=== PATIENT | male | born 1955 | race Caucasian/White ===

== ENCOUNTER 2025-01-04 12:16 | Inpatient (IN) ==
--- NOTE | 2025-01-04 12:50 | Emergency Department Note ---
Impression & Plan Hematuria, gross, Clot retention of urine, Acute blood loss anemia, BPH with urinary obstruction ED Provider Note NAME: ROS HOLDEN AGE: 69 SEX: M : 1955 ARRIVES VIA: Walk-In INFORMANT: Patient ED PROVIDER(S): Jared Hollins MD CHIEF COMPLAINT: Gross hematuria, obstructed Arita catheter, referred PLAN: Disposition: Admit MEDICAL DECISION MAKING: The patient is a pleasant 69-year-old gentleman with a past medical history of BPH with LUTS who presents to the emergency department referred by his urology office for further evaluation and management of persistent gross hematuria and recurring obstruction of his Arita catheter in the setting of having a TURP performed on 12/22. The patient was seen in the emergency department early this morning for obstructed Arita catheter and had followed up with urology this afternoon and had continued obstruction of his Arita catheter despite manual evacuation of clots and irrigation. Patient's Arita catheter was also upsized in the urology office but recurring obstruction of his catheter persisted. Patient is not on anticoagulation. He does take a low-dose aspirin daily. On evaluation patient no distress, afebrile with [place] 90s and blood pressure 150s/80s and otherwise stable vital signs. He appears clinically dry. Abdomen is nontender. Arita catheter is present with gross hematuria. Case was discussed with Vesat Castaneda urology DAI with Dr. Bennett, urology who were aware of the patient for the emergency department. Appreciate consultation recommendations. Blood work was obtained and saline lock was placed. WBC within normal limits with neutrophilia but no left shift, nonspecific. H/H 10.4/30.4 decreased from 14.5/41.5 several weeks ago without recent for comparison. Platelets within normal limits. Chemistry without metabolic acidosis. Electrolytes and LFTs unremarkable. Patient was assessed by urology at the bedside where manual evacuation irrigation of his Arita catheter was successful. However given recurring episodes of obstruction of the catheter recommend admission to hospital service for further monitoring in the event that OR clot evacuation would be needed. Agrees with empiric antibiotics while awaiting urine culture from early this morning. IV cefepime administered empirically per prior urine culture which grew Acinetobacter. Case was discussed with Marla LALA with Dr. Gan with [facility] hospitalist, who will evaluate the patient for admission. Triage Nursing notes reviewed and agree them. Prior/external medical records reviewed Vital Signs: reviewed Differential diagnosis: Renal colic, UTI, appendicitis, diverticulitis, mesenteric ischemia, aortic pathology, infections, inflammatory bowel disease, PUD, biliary pathology, as well as other pathologies. ER treatment provided: See below. Diagnostics interpreted by me: Cardiac Monitoring: An order for continuous cardiac monitoring was placed and demonstrated Laboratory studies: See below Imaging studies: See below Consultation(s): Marla LALA with Dr. Gan with [facility] hospitalist Vesta Castaneda, urology PRE BILLING SPECIALIST with Dr. Bennett, urology HPI: Per MDM. ROS: See above HPI for pertinent positives & negatives. A total of 10 systems reviewed and were otherwise negative. VITALS:See Below PHYSICAL EXAMINATION: GENERAL: Awake, alert, in no distress HENT: Normocephalic, atraumatic. Oropharynx with dry mucous membranes and otherwise unremarkable. EYES: Normal conjunctiva. Sclera non-icteric. NECK: Supple. No nuchal rigidity. FROM. No JVD. RESPIRATORY: Clear to auscultation. CARDIAC: Regular rate, normal rhythm. Extremities warm and well perfused. Pulses equal. ABDOMEN: Soft, non-distended. No tenderness to palpation. No rebound or guarding. : Arita catheter is present with gross hematuria. MUSCULOSKELETAL: Chest examination reveals no tenderness. The back is symmetrical on inspection without obvious abnormality. There is no CVA tenderness to palpation. No joint edema. LOWER EXTREMITIES: Calves are equal size bilaterally and non-tender. No edema. No discoloration. NEURO: Normal sensorium. No sensory or motor deficits noted. SKIN: No rash or jaundice noted. Jared Hollins MD Past Med/Surg History Problem List (Updated 01/04/25 @ 20:07 by Jared Hollins MD) Abnormal urinalysis Acute blood loss anemia (Acute) Hematuria (Acute) Acute urinary retention (Acute) Clot retention of urine (Acute) Hematuria, gross (Acute) Encounter for pre-operative examination BPH with urinary obstruction (Acute) Medical History Aortic stenosis Mild per 06/25/22 ECHO Hx of psoriasis Hx of sleep apnea CPAP Diabetes mellitus, type 2 NIDDM BPH with urinary obstruction Hx of hyperlipidemia History of hypertension Surgical History S/P TURP Hx of repair of right rotator cuff Hx of colonoscopy sometime prior to 2019 H/O wisdom tooth extraction Social History Smoking Status: Former smoker Tobacco Type: Cigarettes, Pipe and Cigars Second Hand Exposure: Yes (hx in the [place]); Do You Dip or Chew Tobacco: No; Hx Alcohol Use: Yes Alcohol type: beer Hx Substance Use: No Preferred Language: Belarusian Communication Ability: Effective Visual Impairment: No Limitations Flight Operations Dispatch Clerk Required: No Beliefs That Will Affect Care: None Current Living Situation: Spouse Other Information That Helps Us Care for You: No Feels Safe at Home: Yes Safety Concerns: Feels Safe At This Time Assistive Devices: Glasses Allergies Allergies Allergy/AdvReac Type Severity Reaction Status Date / Time No Known Allergies Allergy Verified 01/04/25 01:45 Home Meds Home Medications Medication Instructions Recorded Confirmed adalimumab 40 mg/0.8 mL 40 mg subcut WK 10/28/24 01/04/25 subcutaneous pen kit (Humira Pen) amlodipine 5 mg tablet 5 mg PO QAM 10/28/24 01/04/25 atorvastatin 40 mg tablet 40 mg PO QAM 10/28/24 01/04/25 losartan 100 mg tablet 100 mg PO QAM 10/28/24 01/04/25 metformin 1,000 mg tablet 1,000 mg PO BID 10/28/24 01/04/25 semaglutide 2 mg/dose (8 mg/3 mL) 2 mg subcut WK 10/28/24 01/04/25 subcutaneous pen injector (Ozempic) sildenafil 25 mg tablet 25 mg PO UD PRN Erectile 10/28/24 01/04/25 Dysfunction tamsulosin 0.4 mg capsule 0.4 mg PO QAM 10/28/24 01/04/25 finasteride 5 mg tablet 5 mg PO QAM 12/13/24 01/04/25 multivit with minerals-folic 1 tab PO QAM 12/13/24 01/04/25 acid-lycopene 0.4 mg-600 mcg tablet (One Daily For Men) aspirin 81 mg tablet,delayed 81 mg PO DAILY 01/04/25 01/04/25 release Results & Data (ED) Vital Signs Vital Signs - 24 hr 01/04/25 12:17 01/04/25 13:00 Temperature 36.7 C Temperature Source Temporal Artery Scan Pulse Rate 94 H 78 Pulse Rhythm Regular Pulse Strength Normal Respiratory Rate 20 16 Respiratory Effort / Characteristics Non-Labored Spontaneous Respiratory Depth Normal Blood Pressure 154/81 H Blood Pressure Mean 105 Blood Pressure Position Sitting Pulse Oximetry 96 94 Oxygen Delivery Method Room Air Room Air Sepsis Recent Fever Within 48 Hours No Sepsis New/Unexplained Change in Mental Status N/A Sepsis Action Taken by Nursing No Action Required Laboratory Data Attestation: I reviewed the patient's lab results. 01/04/25 12:55 01/04/25 12:55 Lab Results 01/04/25 Range/Units 12:55 WBC 10.37 (4.8-10.8) K/ul RBC 3.45 L (4.70-6.10) M/uL Hgb 10.4 L (14.0-18.0) g/dl Hct 30.4 L (42.0-52.0) % MCV 88.1 (80.0-100.0) fL MCH 30.1 (25.0-34.0) pg MCHC 34.2 (32.0-36.0) g/dL RDW Std Deviation 42.2 (36.4-46.3) fL RDW Coeff of Lilia 13.2 (11.5-14.5) % Plt Count 315 (130-400) K/uL MPV 9.7 (9.4-12.4) fL Immature Gran % (Auto) 0.3 % Neut % (Auto) 72.2 % Lymph % (Auto) 19.4 % Boundary % (Auto) 6.0 % Eos % (Auto) 1.3 % Baso % (Auto) 0.8 % Neut # (Auto) 7.50 H (1.40-6.50) K/uL Lymph # (Auto) 2.01 (1.20-3.40) K/uL Boundary # (Auto) 0.62 H (0.11-0.59) K/uL Eos # (Auto) 0.13 (0.00-0.50) K/uL Baso # (Auto) 0.08 (0.00-0.20) K/uL Immature Gran # (Auto) 0.03 (0.01-0.20) K/uL PT 10.3 (9.0-12.0) Seconds INR 0.9 (0.9-1.1) Sodium 140 (136-145) mmol/L Potassium 3.6 (3.5-5.1) mmol/L Chloride 107 (98-107) mmol/L Carbon Dioxide 24 (21-32) mmol/L Anion Gap 9 (3-11) BUN 9 (6-23) mg/dl Creatinine 0.75 (0.6-1.4) mg/dl Est Cr Clr Drug Dosing 102.4 ml/min eGFR 98.91 BUN/Creatinine Ratio 12.0 (10-20) Glucose 77 (70-99(Fasting)) mg/dl Calcium 9.2 (8.6-10.3) mg/dl Total Bilirubin 0.5 (0.2-1.0) mg/dl AST 12 L (13-39) U/L ALT 17 (7-52) U/L Alkaline Phosphatase 95 (34-104) U/L Total Protein 7.2 (6.0-8.3) gm/dl Albumin 4.0 (3.4-5.0) gm/dl Globulin 3.2 (2.5-4.0) gm/dl Albumin/Globulin Ratio 1.3 (0.9-2) Administered Medications Insulin Aspart (Insulin Aspart Per Unit Charge) 0 units SC ACHS SHAYAN Stop: 02/03/25 16:29 Last Admin: 01/04/25 17:43 Dose: 2 units Documented By: NALLELY Co-signed By: KD Discontinued Medications Cefepime HCl (Maxipime 2000mg) 2,000 mg in 20 mls @ 5 mls/min IV NOW STA; Protocol Stop: 01/04/25 14:56 Last Admin: 01/04/25 14:59 Dose: 5 mls/min Documented By: Sodium Chloride (Nss) 1,000 mls @ 125 mls/hr IV .Q8H SHAYAN Stop: 01/07/25 14:59 Last Infusion: 01/04/25 17:26 Dose: Infused Documented By: Admin: 01/04/25 14:59 Dose: 125 mls/hr Documented By: Discharge Plan Visit Data Chief Complaint: Referred by Doctor Stated Complaint: MEET WITH DOC ED Provider: Jared Hollins Discharge Problem: Hematuria, gross, Clot retention of urine, Acute blood loss anemia, BPH with urinary obstruction Patient Disposition: Admitted As Inpatient Condition: Fair Discharge Instructions Interventions: ED Discharge Assessment Last Done: 01/04/25 15:42
[2025-01-04 14:11] LABS: Hematocrit (blood only) 30.4 % (42.0-52.0); Hemoglobin 10.4 g/dl (14.0-18.0); Immature Granulocytes # (auto) 0.03 K/uL (0.01-0.20); Immature Granulocytes % (auto) 0.3 %; Mean Corpuscular Hemoglobin 30.1 pg (25.0-34.0); Mean Corpuscular Volume 88.1 fL (80.0-100.0); Platelet Count 315 K/uL (130-400); RDW Standard Deviation 42.2 fL (36.4-46.3); Red Blood Count 3.45 M/uL (4.70-6.10); White Blood Count 10.37 K/ul (4.8-10.8)
[2025-01-04 14:22] LABS: Alanine Aminotransferase 17.0 U/L (7-52); Albumin Globulin Ratio 1.3 (0.9-2); Alkaline Phosphatase 95.0 U/L (34-104); Anion Gap 9.0 (3-11); Bilirubin,Total 0.5 mg/dl (0.2-1.0); Blood Urea Nitrogen 9.0 mg/dl (6-23); Calcium 9.2 mg/dl (8.6-10.3); Carbon Dioxide 24.0 mmol/L (21-32); Chloride 107.0 mmol/L (98-107); Creatinine Clr Calc Pharmacy 102.4 ml/min; Globulin 3.2 gm/dl (2.5-4.0); Glucose 77.0 mg/dl (70-99(Fasting)); Potassium 3.6 mmol/L (3.5-5.1); Sodium 140.0 mmol/L (136-145); Total Protein 7.2 gm/dl (6.0-8.3)
[2025-01-04 14:23] LABS: INR 0.9 (0.9-1.1); Prothrombin Time 10.3 Seconds (9.0-12.0)
--- NOTE | 2025-01-04 14:57 | Urology Consultation ---
Date of Consultation January 04, 2025 Assessment & Plan (1) Hematuria: (2) Acute urinary retention: Plan 69-year-old male who is status post TURP for urinary retention on 12/22/2024. He was discharged on the same day but unfortunately developed clot retention and had to be irrigated in clinic that same day. He is then passed to void trials but unfortunately gone back into retention and had a catheter placed in the ED. He presented to our outpatient office with clot retention today. He was recommended to go over to the emergency department. I immediately aspirated roughly 200 cc of old blood clot. I then irrigated the bladder with 500 cc of sterile water and urine was thin red at the conclusion. Given his prolonged postoperative course and multiple needs for replacement of catheter, I think it is reasonable to observe him overnight and make him n.p.o. at midnight in the event that his urine does not further clear tomorrow. I would then take him to the OR for cystoscopy, clot evacuation and fulguration. I am hopeful that he was initially voiding after his void trials, but sounds like he developed clot retention. I do think he will ultimately void once we can address his hematuria and give him time to recover Nursing can hand irrigate catheter as needed N.p.o. at midnight Urology will reevaluate in the morning and determine if he can be observed or needs to be taken to the OR. History of Present Illness History of Present Illness 69-year-old male who is status post TURP for urinary retention on 12/22/2024. He was discharged on the same day but unfortunately developed clot retention and had to be irrigated in clinic that same day. He is then passed to void trials but unfortunately gone back into retention and had a catheter placed in the ED. He presented to our outpatient office with clot retention today. He was recommended to go over to the emergency department. Afebrile with stable vitals. Labs show a hemoglobin of 10.4, creatinine of 0.5 and a urinalysis that was grossly positive which is expected. Allergies Allergy/AdvReac Type Severity Reaction Status Date / Time No Known Allergies Allergy Verified 01/04/25 01:45 Home Medications Medication Instructions Recorded Confirmed Type adalimumab 40 mg/0.8 mL 40 mg subcut WK 10/28/24 01/04/25 History subcutaneous pen kit (Humira Pen) amlodipine 5 mg tablet 5 mg PO QAM 10/28/24 01/04/25 History atorvastatin 40 mg tablet 40 mg PO QAM 10/28/24 01/04/25 History losartan 100 mg tablet 100 mg PO QAM 10/28/24 01/04/25 History metformin 1,000 mg tablet 1,000 mg PO BID 10/28/24 01/04/25 History semaglutide 2 mg/dose (8 mg/3 mL) 2 mg subcut WK 10/28/24 01/04/25 History subcutaneous pen injector (Ozempic) sildenafil 25 mg tablet 25 mg PO UD PRN Erectile 10/28/24 01/04/25 History Dysfunction tamsulosin 0.4 mg capsule 0.4 mg PO QAM 10/28/24 01/04/25 History finasteride 5 mg tablet 5 mg PO QAM 12/13/24 01/04/25 History multivit with minerals-folic 1 tab PO QAM 12/13/24 01/04/25 History acid-lycopene 0.4 mg-600 mcg tablet (One Daily For Men) sulfamethoxazole 800 1 tab PO BID 7 days #14 tabs 01/04/25 01/04/25 Rx mg-trimethoprim 160 mg tablet (Bactrim DS) Patient History Medical History Aortic stenosis Mild per 06/25/22 ECHO Hx of psoriasis Hx of sleep apnea CPAP Diabetes mellitus, type 2 NIDDM BPH with urinary obstruction Hx of hyperlipidemia History of hypertension Surgical History Hx of repair of right rotator cuff Hx of colonoscopy sometime prior to 2019 H/O wisdom tooth extraction Social History Smoking Status: Former smoker Tobacco Type: Cigarettes Second Hand Exposure: Yes (hx in the [place]); Do You Dip or Chew Tobacco: No; Hx Alcohol Use: Yes Alcohol type: beer Hx Substance Use: No Preferred Language: Sinhala Communication Ability: Effective Visual Impairment: No Limitations Legal Investigator Required: No Beliefs That Will Affect Care: None Current Living Situation: Spouse Feels Safe at Home: Yes Assistive Devices: CPAP and Glasses Physical Exam Physical Exam: General: Alert and oriented, no acute distress HEENT: Normocephalic, mucous membranes moist Pulmonary: Nonlabored respirations Abdomen: Nondistended : 18 German catheter with maroon blood in bag Extremities: Moves all 4 spontaneously Neuro: No gross deficits Skin: Warm, dry, no rashes noted Results & Data Vital Signs (Past 12 Hours) Vital Signs Temp Pulse Resp BP Pulse Ox O2 Del Method 01/04/25 13:00 78 16 94 Room Air 01/04/25 12:17 36.7 C 94 H 20 154/81 H 96 Room Air PG Care Time/CCT Total # of Minutes Spent Total Time Spent with Patient: Total time spent is greater than 50% in coordination of care (as documented) at patient's floor/unit and/or counseling patient: Coding Level of Care Code 66342 INT INP/OBS CARE 2/55MIN Diagnoses Hematuria R31.9 Acute urinary retention R33.8
[2025-01-04] MEDS: SODIUM CHLORIDE 0.9% 1,000 ML IV SCH (14:59)
[2025-01-04] MEDS: CEFEPIME 2000MG 2,000 MG/20 ML SYR IV STA (14:59)
--- NOTE | 2025-01-04 16:03 | History & Physical Report ---
Date of Service January 04, 2025 Assessment & Plan (1) Hematuria: (2) Clot retention of urine: (3) S/P TURP: (4) Abnormal urinalysis: (5) BPH with urinary obstruction: Plan: Admit to med/surg Patient presenting by referral of urology office for hematuria. S/p TURP on 12/22. Patient was discharged with Arita catheter in place and required evaluation the same day in the urology office for hematuria and clotted catheter. Patient was seen in the office yesterday and passed a voiding trial and catheter was removed. By 9 PM, patient reports he was urinating blood clots again. Patient was evaluated in the emergency room overnight and had catheter placed again. Patient was then seen in the urology office this afternoon and was noted to have ongoing hematuria and clots and was referred to the ED for further evaluation. Evaluated by urology in the ED - manually irrigated multiple times due to clots, will start CBI NPO after midnight for possible cysto Hold ASA UA suggestive of possible UTI, s/p cefepime in the ED, will continue with based upon prior culture results (Acinetobacter). Does not appear septic. 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 Gan. I spent a total of 75 minutes coordinating, documenting, and providing care for this patient excluding time spent in the performance of separately billed services. This included personally reviewing all current laboratories and imaging studies, medication reconciliation, outpatient chart review, and discussion with specialists. History of Present Illness Chief Complaint: Hematuria Primary Care Provider: Bala Daniel DO 69 year old male with PMH HTN, HLD, DM type II, BPH, psoriasis on Humira, and other problems listed below who presents to the ED for evaluation of hematuria. Patient is s/p TURP on 6/18. Patient was discharged with Arita catheter in place and required evaluation the same day in the urology office for hematuria and clotted catheter. Patient was seen in the office yesterday and passed a voiding trial and catheter was removed. By 9 PM, patient reports he was urinating blood clots again. Patient was evaluated in the emergency room overnight and had catheter placed again. Patient was then seen in the urology office this afternoon and was noted to have ongoing hematuria and clots and was referred to the ED for further evaluation. Patient reports feeling generally unwell. He has had a poor appetite but denies nausea or vomiting. No fever or chills. Reports suprapubic discomfort when unable to urinate. Denies chest pain, shortness of breath, lightheadedness, dizziness, diaphoresis, syncopal events. In the ED, patient was evaluated by urology and catheter was irrigated. Urology recommending admission for observation and possible OR tomorrow. Labs show hgb 10.4, VSS. UA obtained during overnight ED visits suggesting possible infection, patient was given IV Cefepime. Allergies Allergy/AdvReac Type Severity Reaction Status Date / Time No Known Allergies Allergy Verified 01/04/25 01:45 Home Medications Medication Instructions Recorded Confirmed Type adalimumab 40 mg/0.8 mL 40 mg subcut WK 10/28/24 01/04/25 History subcutaneous pen kit (Humira Pen) amlodipine 5 mg tablet 5 mg PO QAM 10/28/24 01/04/25 History atorvastatin 40 mg tablet 40 mg PO QAM 10/28/24 01/04/25 History losartan 100 mg tablet 100 mg PO QAM 10/28/24 01/04/25 History metformin 1,000 mg tablet 1,000 mg PO BID 10/28/24 01/04/25 History semaglutide 2 mg/dose (8 mg/3 mL) 2 mg subcut WK 10/28/24 01/04/25 History subcutaneous pen injector (Ozempic) sildenafil 25 mg tablet 25 mg PO UD PRN Erectile 10/28/24 01/04/25 History Dysfunction tamsulosin 0.4 mg capsule 0.4 mg PO QAM 10/28/24 01/04/25 History finasteride 5 mg tablet 5 mg PO QAM 12/13/24 01/04/25 History multivit with minerals-folic 1 tab PO QAM 12/13/24 01/04/25 History acid-lycopene 0.4 mg-600 mcg tablet (One Daily For Men) aspirin 81 mg tablet,delayed 81 mg PO DAILY 01/04/25 01/04/25 History release Past Med/Surg History Problem List (Updated 01/04/25 @ 17:09 by DAI Weiss) Abnormal urinalysis Acute blood loss anemia Hematuria (Acute) Acute urinary retention (Acute) Clot retention of urine (Acute) Hematuria, gross Encounter for pre-operative examination BPH with urinary obstruction (Acute) Medical History (Updated 01/04/25 @ 17:09 by DAI Weiss) Aortic stenosis Mild per 06/25/22 ECHO Hx of psoriasis Hx of sleep apnea CPAP Diabetes mellitus, type 2 NIDDM BPH with urinary obstruction Hx of hyperlipidemia History of hypertension Surgical History (Updated 01/04/25 @ 17:07 by DAI Weiss) S/P TURP Hx of repair of right rotator cuff Hx of colonoscopy sometime prior to 2019 H/O wisdom tooth extraction Social History Smoking Status: Former smoker Tobacco Type: Cigarettes Second Hand Exposure: Yes (hx in the [place]); Do You Dip or Chew Tobacco: No; Hx Alcohol Use: Yes Alcohol type: beer Hx Substance Use: No Preferred Language: Icelandic Communication Ability: Effective Visual Impairment: No Limitations Mechanical Engineering Officer Required: No Beliefs That Will Affect Care: None Current Living Situation: Spouse Feels Safe at Home: Yes Assistive Devices: CPAP and Glasses Review of Systems Review of Systems: ROS per HPI, all other systems reviewed and negative Physical Exam Constitutional: WD/WN, vitals as above no acute distress Respiratory: normal respiratory effort, lungs clear to auscultation Cardiovascular: Rate/Rhythm: regular rate and regular rhythm Vessels: normal peripheral pulses Extremities: no edema Skin: no rashes, warm and dry Neurologic: no focal motor deficits Psychiatric: A+Ox3, euthymic affect Genitourinary: Arita in place draining mcguire colored urine Results & Data Results & Data Vital Signs (Past 12 Hours) Vital Signs Temp Pulse Pulse Resp BP BP Pulse Ox 01/04/25 15:42 01/04/25 15:34 82 20 146/86 H 96 01/04/25 13:00 78 16 94 01/04/25 12:17 36.7 C 94 H 20 154/81 H 96 O2 Del Method 01/04/25 15:42 Room Air 01/04/25 15:34 Room Air 01/04/25 13:00 Room Air 01/04/25 12:17 Room Air Laboratory Results Short CBC 01/04/25 Range/Units 12:55 WBC 10.37 (4.8-10.8) K/ul Hgb 10.4 L (14.0-18.0) g/dl Hct 30.4 L (42.0-52.0) % Plt Count 315 (130-400) K/uL BMP 01/04/25 12:55 Sodium 140 Potassium 3.6 Chloride 107 Carbon Dioxide 24 BUN 9 Creatinine 0.75 Glucose 77 Calcium 9.2 Liver Function 01/04/25 Range/Units 12:55 Total Bilirubin 0.5 (0.2-1.0) mg/dl AST 12 L (13-39) U/L ALT 17 (7-52) U/L Alkaline Phosphatase 95 (34-104) U/L Albumin 4.0 (3.4-5.0) gm/dl Supervising Physician Co-Signing Physician Notes Attending addendum: The patient was seen and examined in the emergency room He is status post TURP on and having recurrent hematuria and retention of urine He has some hypogastric pain but denies any renal angles pain or any fever and/or chills Was seen by the urologist and the catheter has been placed with still ongoing hematuria On examination Lying in bed and looks very depressed secondary to recurrent hematuria Hemodynamically stable Chest was clear to auscultate bilateral HeartS1-S2, regular Abdomenbenign, hypogastric tenderness, renal angles are not tender CNSalert, awake and oriented x 3 no focal sensory no motor deficit appreciated His admission labs and imaging studies reviewed # Recurrent hematuria and urinary retention with a status post TURP on 12/22 Appreciate urology input and recommendation and the patient will be kept n.p.o. after midnight for possible procedure if hematuria does not get any better His hemoglobin and labs remain unremarkable and will monitor Agree with assessment and plan as outlined above by Marla LALA and take the full responsibility of care in the hospital Dr Roberto Gan
[2025-01-04] MEDS ORDERED: GLUCOSE 10 TAB/TUBE PO PRN (16:24)
[2025-01-04] MEDS ORDERED: ACETAMINOPHEN 325 MG TAB PO PRN (16:24)
[2025-01-04] MEDS ORDERED: DEXTROSE 50% 50 ML SYRINGE IV PRN (16:24)
[2025-01-04] MEDS ORDERED: GLUCOSE 40% GEL 15 GM TUBE PO PRN (16:24)
[2025-01-04] MEDS ORDERED: GLUCAGON FOR INJ 1 MG VIAL SQ PRN (16:24)
[2025-01-04] MEDS ORDERED: CARBOHYDRATES FOR HYPOGLYCEMIA PO PRN (16:24)
[2025-01-04] MEDS: INSULIN ASPART PER UNIT CHARGE SC SCH (17:43)
[2025-01-04] MEDS: CEFEPIME 2000MG 2,000 MG/20 ML SYR IV SCH (20:01)
[2025-01-05] MEDS ORDERED: Nursing to Pharmacy Communication SCH ×2 (06:00→11:00)
[2025-01-05] MEDS: INSULIN ASPART PER UNIT CHARGE SC SCH ×2 (06:21→12:06)
[2025-01-05 06:24] LABS: Hematocrit (blood only) 29.8 % (42.0-52.0); Hemoglobin 10.2 g/dl (14.0-18.0); Mean Corpuscular Hemoglobin 30.4 pg (25.0-34.0); Mean Corpuscular Volume 88.7 fL (80.0-100.0); Platelet Count 278 K/uL (130-400); RDW Standard Deviation 41.1 fL (36.4-46.3); Red Blood Count 3.36 M/uL (4.70-6.10); White Blood Count 9.03 K/ul (4.8-10.8)
[2025-01-05 08:14] LABS: Hemoglobin A1C 4.9 % (4.5-5.6)
[2025-01-05 08:17] LABS: Anion Gap 8.0 (3-11); Calcium 9.1 mg/dl (8.6-10.3); Carbon Dioxide 25.0 mmol/L (21-32); Chloride 107.0 mmol/L (98-107); Potassium 4.0 mmol/L (3.5-5.1); Sodium 140.0 mmol/L (136-145)
[2025-01-05 08:22] LABS: Blood Urea Nitrogen 13.0 mg/dl (6-23); Creatinine Clr Calc Pharmacy 80.0 ml/min; Glucose 81.0 mg/dl (70-99(Fasting))
[2025-01-05] MEDS: TAMSULOSIN HCL 0.4 MG CAP PO SCH (09:18)
[2025-01-05] MEDS: LOSARTAN POTASSIUM 50 MG TAB PO SCH (09:18)
[2025-01-05] MEDS: ATORVASTATIN 40 MG TAB PO SCH (09:18)
[2025-01-05] MEDS: FINASTERIDE 5 MG TAB PO SCH (09:18)
--- NOTE | 2025-01-05 09:48 | Urology Progress Note ---
Date of Service January 05, 2025 Assessment & Plan (1) Hematuria: (2) Acute urinary retention: Plan 69-year-old male with recurrent hematuria and clot retention following a TURP. Bladder was irrigated yesterday and placed on CBI overnight. I clamped his CBI today and recommended he ambulate and then we reassess the color of his urine. On reassessment, urine had slightly darkened but overall not concerning. I gave him the option of going to the OR, going home with a catheter or a void trial. After thoughtful consideration, he wanted to perform a void trial. We did this in his room and I removed his catheter and he was able to empty his bladder. Urine was only pink-tinged. Recommend monitoring him today and ensuring that he continues to void and does not have worsening bleeding. If having no issues by this afternoon, think he is stable for discharge home from a urologic perspective Urology will check on him later today and we will schedule appropriate follow- up based on how he is doing Patient may have a diet as he no longer requires going to the OR Admission and Anticipated Discharge Date Admission Date: January 04, 2025 Subjective No acute issues after night after patient was placed on CBI. Urine clear yellow on very slow drip this morning. Physical Exam Physical Exam: General: Alert and oriented, no acute distress HEENT: Normocephalic, mucous membranes moist Pulmonary: Nonlabored respirations Abdomen: Nondistended : Three-way catheter draining clear yellow urine on slow drip CBI. Extremities: Moves all 4 spontaneously Neuro: No gross deficits Skin: Warm, dry, no rashes noted Results & Data Vital Signs (Past 12 Hours) Vital Signs Temp Pulse Resp BP Pulse Ox O2 Del Method 01/05/25 07:22 36.8 C 51 L 20 155/74 H 95 Room Air PG Care Time/CCT Total # of Minutes Spent Total Time Spent with Patient: Total time spent is greater than 50% in coordination of care (as documented) at patient's floor/unit and/or counseling patient: Coding Level of Care Code 23467 SUB INP/OBS CARE 2/35MIN Diagnoses Hematuria R31.9 Acute urinary retention R33.8
[2025-01-05 12:12] LABS: Appearance Urine Slightly Cloudy (Clear)
[2025-01-05 12:19] LABS: Epithelial Cell Urine 0-2 /hpf (0-2)
--- NOTE | 2025-01-05 14:08 | Hospitalist Progress Note ---
Date of Service January 05, 2025 Assessment & Plan (1) Hematuria: (2) Clot retention of urine: (3) S/P TURP: (4) Abnormal urinalysis: (5) BPH with urinary obstruction: Plan: Patient presenting by referral of urology office for hematuria. S/p TURP on 12/22. Patient was discharged with Arita catheter in place and required evaluation the same day in the urology office for hematuria and clotted catheter. Patient was seen in the office a day prior to admission and passed a voiding trial and catheter was removed. By 9 PM, patient reports he was urinating blood clots again. P atient was evaluated in the emergency room overnight and had catheter placed again. Patient was then seen in the urology office this afternoon and was noted to have ongoing hematuria and clots and was referred to the ED for further evaluation. Urine analysis suggestive of infection. Urine culture growing Serratia. Continue to monitor for recurrence of urinary retention/significant hematuria Continue on cefepime Follow-up on final culture and sensitivity (6) Acute blood loss anemia: Plan: Hgb 14.5 on 12/09 -> 10.4 on admission Due to hematuria Continue to monitor CBC (7) Diabetes mellitus, type 2: Plan: Hgb A1c 5.4 04/2024 Hold oral agents and utilize Novolog per protocol while hospitalized (8) History of hypertension: Plan: Continue ELECTRONIC SYSTEMS SECURITY ASSESSMENT amlodipine and losartan (9) Hx of psoriasis: Plan: Managed with Humira (10) Hx of hyperlipidemia: Plan: Continue ELECTRONIC SYSTEMS SECURITY ASSESSMENT statin DVT PROPHYLAXIS SCDs due to hematuria Please note the above document was generated using voice recognition software. It may contain grammatical, syntax or spelling errors. Any formal questions or concerns about the content, text or information contained within the body of this dictation should be directly addressed to the provider for clarification Admission and Anticipated Discharge Date Admission Date: January 04, 2025 Subjective Patient seen and examined. He is comfortable lying in the bed; not in distress. Arita catheter was taken out and patient was able to void once. Reports pinkish urine; no clot. Review of Systems Review of Systems: All systems reviewed & are unremarkable except as noted in Subjective Physical Exam Physical Exam: Constitutional: WD/WN, vitals as above, NAD, sitting up in bed, pleasant, conversing easily Respiratory: normal respiratory effort, lungs clear to auscultation, no wheeze, rales, rhonchi. Normal insp/exp effort, no accessory muscle use Cardiovascular: RRR, no murmur, no edema Vessels: no JVD or carotid bruit Chest: normal inspection of chest Abdomen: normal bowel sounds, soft, nontender, no hepatosplenomegaly Musculoskeletal: no cyanosis or clubbing, extremities motor strength 5/5 Skin: no rashes, warm and dry normal turgor Neurologic: PERRL, EOMI, accommodation nl, no face palsy, no dysarthria CN's II- XI intact bilaterally and moves all extremities Psychiatric: A+Ox3, euthymic affect Results & Data Results & Data Vital Signs (Past 12 Hours) Vital Signs Temp Pulse Resp BP Pulse Ox O2 Del Method 01/05/25 07:22 36.8 C 51 L 20 155/74 H 95 Room Air
[2025-01-05 14:27] VITALS: RESP 16
[2025-01-05 19:18] VITALS: TEMP 98.1
[2025-01-06 06:55] LABS: Hematocrit (blood only) 29.8 % (42.0-52.0); Hemoglobin 10.0 g/dl (14.0-18.0); Immature Granulocytes # (auto) 0.03 K/uL (0.01-0.20); Immature Granulocytes % (auto) 0.4 %; Mean Corpuscular Hemoglobin 30.0 pg (25.0-34.0); Mean Corpuscular Volume 89.5 fL (80.0-100.0); Platelet Count 304 K/uL (130-400); RDW Standard Deviation 41.7 fL (36.4-46.3); Red Blood Count 3.33 M/uL (4.70-6.10); White Blood Count 8.10 K/ul (4.8-10.8)
[2025-01-06 07:02] VITALS: BP 142/76; PULSE 84; O2SAT 97
[2025-01-06 07:25] LABS: Anion Gap 7.0 (3-11); Blood Urea Nitrogen 13.0 mg/dl (6-23); Calcium 8.9 mg/dl (8.6-10.3); Carbon Dioxide 25.0 mmol/L (21-32); Chloride 106.0 mmol/L (98-107); Creatinine Clr Calc Pharmacy 89.3 ml/min; Glucose 84.0 mg/dl (70-99(Fasting)); Potassium 3.8 mmol/L (3.5-5.1); Sodium 138.0 mmol/L (136-145)
--- NOTE | 2025-01-06 08:34 | Urology Progress Note ---
Date of Service January 06, 2025 Assessment & Plan (1) Hematuria, gross: (2) BPH with urinary obstruction: Plan: 69-year-old male with recurrent hematuria and clot retention following a TURP. Bladder was manually irrigated on admission and he was placed on CBI overnight. CBI was clamped yesterday and he passed a void trial. He is afebrile, hemodynamically stable Labs reviewedcreatinine 0.86, WBC 8.1, hemoglobin 10.0 He has been voiding spontaneously since catheter removal, PVRs less than 200 Urine became more bloody overnight and this morning Encouraged hydration and monitoring this morning We discussed that urinary frequency is expected at this stage of healing status post TURP He seems to be voiding adequately, PVRs are acceptable We discussed monitoring throughout the morning and probable discharge to home later today presuming he is doing well Plan to follow-up in urology clinic as scheduled on Friday, 01/10 Admission and Anticipated Discharge Date Admission Date: January 04, 2025 Subjective Patient seen and examined at bedside this morning He is awake and sitting up in bedside chair He is voiding spontaneously, PVRs less than 200 Reports urine became more bloody overnight, but feels like he is emptying okay, has passed a few clots Reports urinary frequency Denies nausea, vomiting, fever or chills Review of Systems Constitutional: as per Subjective / HPI Genitourinary: + as per Subjective / HPI Physical Exam Constitutional: well developed and well nourished; no acute distress Respiratory: normal respiratory effort; no respiratory distress and no labored breathing Gastrointestinal (Abdomen): Inspection/Auscultation: abdomen normal to in spection Musculoskeletal: Head/Neck/Chest: normocephalic Neurologic: moves all extremities and awake Psychiatric: Orientation: alert and oriented x 3 Genitourinary: Urine thin maroon in urinal Results & Data Vital Signs (Past 12 Hours) Vital Signs Temp Pulse Resp BP Pulse Ox O2 Del Method 01/06/25 06:59 36.7 C 84 16 142/76 H 97 Room Air PG Care Time/CCT Total # of Minutes Spent Total Time Spent with Patient: Total time spent is greater than 50% in coordination of care (as documented) at patient's floor/unit and/or counseling patient: Coding Level of Care Code 35530 SUB INP/OBS CARE 07/31MIN Diagnoses Hematuria, gross R31.0 BPH with urinary obstruction N40.1; N13.8
--- NOTE | 2025-01-06 13:36 | Discharge Summary ---
Date of Service January 06, 2025 Admission HPI Per Admitting Provider 69 year old male with PMH HTN, HLD, DM type II, BPH, psoriasis on Humira, and other problems listed below who presents to the ED for evaluation of hematuria. Patient is s/p TURP on 12/22. Patient was discharged with Arita catheter in place and required evaluation the same day in the urology office for hematuria and clotted catheter. Patient was seen in the office yesterday and passed a voiding trial and catheter was removed. By 9 PM, patient reports he was urinating blood clots again. Patient was evaluated in the emergency room overnight and had catheter placed again. Patient was then seen in the urology office this afternoon and was noted to have ongoing hematuria and clots and was referred to the ED for further evaluation. Patient reports feeling generally unwell. He has had a poor appetite but denies nausea or vomiting. No fever or chills. Reports suprapubic discomfort when unable to urinate. Denies chest pain, shortness of breath, lightheadedness, dizziness, diaphoresis, syncopal events. In the ED, patient was evaluated by urology and catheter was irrigated. Urology recommending admission for observation and possible OR tomorrow. Labs show hgb 10.4, VSS. UA obtained during overnight ED visits suggesting possible infection, patient was given IV Cefepime. Admission Exam Per Admitting Provider Constitutional: WD/WN, vitals as above no acute distress Respiratory: normal respiratory effort, lungs clear to auscultation Cardiovascular: Rate/Rhythm: regular rate and regular rhythm Vessels: normal peripheral pulses Extremities: no edema Skin: no rashes, warm and dry Neurologic: no focal motor deficits Psychiatric: A+Ox3, euthymic affect Genitourinary: Arita in place draining mcguire colored urine Principal Diagnosis (1) Hematuria: (2) Clot retention of urine: (3) S/P TURP: (4) Abnormal urinalysis: (5) BPH with urinary obstruction: Discharge Exam Constitutional: WD/WN, vitals as above, NAD, sitting up in bed, pleasant, conversing easily Respiratory: normal respiratory effort, lungs clear to auscultation, no wheeze, rales, rhonchi. Normal insp/exp effort, no accessory muscle use Cardiovascular: RRR, no murmur, no edema Vessels: no JVD or carotid bruit Chest: normal inspection of chest Abdomen: normal bowel sounds, soft, nontender, no hepatosplenomegaly Musculoskeletal: no cyanosis or clubbing, extremities motor strength 5/5 Skin: no rashes, warm and dry normal turgor Neurologic: PERRL, EOMI, accommodation nl, no face palsy, no dysarthria CN's II- XI intact bilaterally and moves all extremities Psychiatric: A+Ox3, euthymic affect Discharge Data Allergies Allergy/AdvReac Type Severity Reaction Status Date / Time No Known Allergies Allergy Verified 01/04/25 01:45 Consultations 01/04/25 15:03 ED Decision to Admit Stat 01/04/25 16:24 Consult Urology Routine Hospital Course (1) Hematuria: (2) Clot retention of urine: (3) S/P TURP: (4) Abnormal urinalysis: (5) BPH with urinary obstruction: (6) Acute blood loss anemia: Plan Patient presenting by referral of urology office for hematuria. S/p TURP on 12/22. Patient was discharged with Arita catheter in place and required evaluation the same day in the urology office for hematuria and clotted cathet er. Patient was seen in the office a day prior to admission and passed a voiding trial and catheter was removed. By 9 PM, patient reports he was urinating blood clots again. Patient was evaluated in the emergency room overnight and had catheter placed again. Patient was then seen in the urology office this afternoon and was noted to have ongoing hematuria and clots and was referred to the ED for further evaluation. Patient was a trial of void to the hospitalization successfully during the hospitalization. Urine culture was growing Serratia; was treated with IV antibiotic and switch to p.o. at discharge. Patient was recommended to hold aspirin for the time being until hematuria resolves. Patient to follow-up with urology and PCP after discharge. Please note the above document was generated using voice recognition software. It may contain grammatical, syntax or spelling errors. Any formal questions or concerns about the content, text or information contained within the body of this dictation should be directly addressed to the provider for clarification Total Time Total Time Spent Total Time Spent (In Minutes): 45 Total Time Includes: Examination of the Patient, Discharge Planning, Medication Reconciliation, Communication With Other Providers and Other Discharge Plan Discharge Items Patient Disposition: Home - Self-Care Reason For Visit: HEMATURIA Discharge Diagnosis: (1) Hematuria: (2) Clot retention of urine: (3) S/P TURP: (4) Abnormal urinalysis: (5) BPH with urinary obstruction: Condition on Discharge: Fair Activity: Resume your previous activity Non-emergency contact: Primary Care Provider Call non-emergency contact if: you have any medication questions and your symptoms worsen Follow-up/Referrals: Vesta Castaneda CRNP [Nurse Practitioner] - 01/10/25 8:30 am Bala Daniel, [Primary Care Provider] - 01/12/25 11:00 am (Date & Time 01/12/2025 11:00 AM Provider: Bala Daniel DO [facility] ) Diet: Regular Addtl Attending Provider Instructions: You were admitted to the hospital due to blood in your urine. You were seen by urologist during the hospitalization. Urine culture was positive for possible infection. You are prescribed ciprofloxacin to be taken twice a day for 5 more days to complete the antibiotic course. You have an appointment set up with your primary care doctor and urology. Please stop taking aspirin until your urine starts to clear up. Pending Studies at Discharge: No Stand-Alone Forms: My [facility] Hit the Mark, Smoking Cessation Medications and DC Order Prescriptions: New ciprofloxacin HCl 500 mg tablet 500 mg PO BID 5 Days Qty: 10 0RF Continued One Daily For Men 0.4-600 mg-mcg Tablet 1 tab PO QAM finasteride 5 mg tablet 5 mg PO QAM atorvastatin 40 mg tablet 40 mg PO QAM amlodipine 5 mg tablet 5 mg PO QAM sildenafil 25 mg tablet 25 mg PO UD PRN (Reason: Erectile Dysfunction) tamsulosin 0.4 mg capsule 0.4 mg PO QAM metformin 1,000 mg tablet 1,000 mg PO BID losartan 100 mg tablet 100 mg PO QAM Humira Pen 40 mg/0.8 mL pen injector kit 40 mg SUBCUT WK Rx Instructions: FRIDAYS Ozempic 2 mg/dose (8 mg/3 mL) pen injector 2 mg subcut WK Patient Comments: sundays Rx Instructions: SUNDAYS Held aspirin 81 mg Tablet,Delayed Release (Dr/Ec) 81 mg PO DAILY Hold Instructions: Resume on 01/12/25. Discharge Orders: Discharge Order (Routine); Ordered 01/06/25 Ordered By: Dell Pleitez/Other Patient Handouts: TURP, ED Blood in the Urine Admission Data Admit Date/Time: 01/04/25 15:11 Attending Provider: Dell Nelson Admit Provider: Anna Gan Primary Care Provider: Bala Daniel Other Providers: Anna Gan; Ryan Bennett Other Interventions: Discharge Summary Assessment (RN) Last Done: 01/06/25 10:35
== END 2025-01-06 11:12 | disposition home or self-care (01) | DRG 696 ==
LOC: ED 12:16 → SUATTDRO 15:11 → 3W 15:11